=== PATIENT | male | born 1945 | race Caucasian/White ===

== ENCOUNTER 2016-11-20 12:04 | Inpatient (IN) | payer OTHER ==
[~2016-11-20] VITALS: Ht 180.3 cm; Wt 108.5 kg
[2016-11-20 12:30] LABS: HEMOGLOBIN 16.6 g/dL (13.7-18.0)
[2016-11-20] MEDS ORDERED: UBID100T5 PO (12:36)
[2016-11-20] MEDS ORDERED: ATOR40TA78 PO (12:36)
[2016-11-20] MEDS ORDERED: METO50TA82 PO (12:36)
[2016-11-20] MEDS ORDERED: CHOL20002 PO (12:36)
[2016-11-20] MEDS ORDERED: ENAL2.5T PO (12:36)
[2016-11-20] MEDS ORDERED: ASPI-621 PO (12:36)
[2016-11-20] MEDS ORDERED: LEVO125T PO (12:36)
[2016-11-20] MEDS ORDERED: testosterone INJ (12:36)
[2016-11-20] MEDS ORDERED: CALC250T PO (12:36)
[2016-11-20] MEDS ORDERED: MULT-464 PO (12:36)
[2016-11-20] MEDS ORDERED: METHYLCOBALAMIN SL (12:36)
[2016-11-20 12:37] VITALS: BP 114/73
[2016-11-20 12:42] LABS: ASPARTATE AMINO TRANSFERASE 142 U/L (15-37); BLOOD UREA NITROGEN 12 mg/dL (7-18)
[2016-11-20 12:54] LABS: ANISOCYTOSIS 1+
[2016-11-20 12:55] LABS: LARGE PLATELETS 1+
[2016-11-20] MEDS ORDERED: MIDAZOLAM 1 MG/ML, 5ML ONE (13:01)
[2016-11-20] MEDS ORDERED: FENTANYL PF 100 MCG/2ML ONE (13:02)
[2016-11-20] MEDS ORDERED: HEPARIN 1,000 UNITS/ML, 10ML ONE (13:02)
[2016-11-20] MEDS ORDERED: BIVALIRUDIN 250 MG ONE (13:02)
[2016-11-20] MEDS ORDERED: NITROGLYCERIN 5 MG/ML, 10ML ONE (13:02)
[2016-11-20] MEDS ORDERED: LIDOCAINE 2%, 20ML ONE (13:02)
[2016-11-20] MEDS ORDERED: TICAGRELOR 90 MG TABLET ONE (13:02)
[2016-11-20] MEDS ORDERED: SODIUM CHLORIDE 0.45% 1,000 ML IV SCH (13:12)
[2016-11-20] MEDS ORDERED: ACETAMINOPHEN 325 MG TABLET PO PRN (13:30)
[2016-11-20 14:20] VITALS: BP 101/64
[2016-11-20] MEDS ORDERED: PLEASE ENTER HEIGHT AND WEIGHT MC SCH (14:23)
[2016-11-20] MEDS ORDERED: ONDANSETRON 2MG/ML, 2ML IV ONE (15:30)
[2016-11-20] MEDS ORDERED: DIPHENHYDRAMINE 25 MG CAPSULE PO PRN (15:30)
[2016-11-20] MEDS ORDERED: NITROGLYCERIN 0.4 MG BOTTLE (25 TABS) SL PRN (15:30)
[2016-11-20] MEDS ORDERED: morphine SULFATE 10 MG/ML, 1ML IV PRN (15:30)
[2016-11-20] MEDS ORDERED: ZOLPIDEM 10MG TABLET PO PRN (15:30)
[2016-11-20] MEDS ORDERED: HEPARIN 5,000 UNITS/ML, 1ML IV PRN (16:30)
[2016-11-20] MEDS ORDERED: DO NOT GIVE MC ONE (16:30)
[2016-11-20] MEDS: HEPARIN 25,000 UNITS/500ML PMX 500 ML IV PRN (16:47)
[2016-11-20 17:10] LABS: IS PT STATUS REG ER OR PRE ER? NO
[2016-11-20] MEDS: METOPROLOL SUCCINATE 50 MG TAB.ER.24H PO SCH (17:51)
[2016-11-20 20:00] VITALS: BP 112/74
[2016-11-20] MEDS: SODIUM CHLORIDE 0.45% 1,000 ML IV SCH ×2 (20:16→23:45)
[2016-11-20] MEDS: ATORVASTATIN 40 MG TABLET PO SCH (21:40)
[2016-11-20] MEDS: ENALAPRIL 2.5MG TABLET PO SCH (21:40)
[2016-11-21] MEDS: SODIUM CHLORIDE 0.45% 1,000 ML IV SCH (01:16)
[2016-11-21 03:09] VITALS: BP 93/64
[2016-11-21] MEDS ORDERED: DILTIAZEM 5 MG/ML, 5ML ONE (04:38)
[2016-11-21 06:08] LABS: BLOOD UREA NITROGEN 12 mg/dL (7-18)
[2016-11-21 06:35] VITALS: BP 104/69
[2016-11-21 08:43] VITALS: BP 114/74
[2016-11-21] MEDS: ASPIRIN 325 MG TABLET EC PO SCH (08:47)
[2016-11-21] MEDS: ENALAPRIL 2.5MG TABLET PO SCH ×2 (08:47→21:51)
[2016-11-21] MEDS: LEVOTHYROXINE 125 MCG TABLET PO SCH (08:48)
[2016-11-21] MEDS ORDERED: ISOSORBIDE MONONITRATE ER 30 MG TABLET PO SCH (09:00)
[2016-11-21] MEDS ORDERED: OMNIPAQUE 350 MG/ML, 100ML BOTTLE ONE (10:09)
[2016-11-21] MEDS ORDERED: METOPROLOL TARTRATE 25 MG TABLET PO ONE (10:30)
[2016-11-21] MEDS ORDERED: CHLORHEXIDINE MOUTHWASH 15 ML UDC MM PRN (10:30)
[2016-11-21 10:57] LABS: ASPARTATE AMINO TRANSFERASE 62 U/L (15-37); BLOOD UREA NITROGEN 11 mg/dL (7-18)
[2016-11-21 11:07] LABS: HEMOGLOBIN 15.6 g/dL (13.7-18.0)
[2016-11-21] MEDS: HEPARIN 25,000 UNITS/500ML PMX 500 ML IV PRN (13:34)
[2016-11-21 13:38] VITALS: BP 107/64
[2016-11-21 15:11] VITALS: BP_SYST 102; BP_SYST 105; BP_DIAS 65
[2016-11-21 19:35] VITALS: BP 124/75
[2016-11-21] MEDS: SODIUM CHLORIDE FLUSH 10ML SYR IVF SCH (21:51)
[2016-11-21] MEDS: ATORVASTATIN 40 MG TABLET PO SCH (21:51)
[2016-11-21] MEDS: MUPIROCIN OINT 2%, 22GM TP SCH (22:54)
[2016-11-22] MEDS ORDERED: ALBUMIN HUMAN 5% 500 ML IV ONE (01:30)
[2016-11-22 04:11] VITALS: BP_SYST 103; BP_SYST 105; BP_DIAS 68; BP_DIAS 69
[2016-11-22] MEDS: MUPIROCIN OINT 2%, 22GM TP SCH ×2 (04:40→21:15)
[2016-11-22] MEDS: ASPIRIN 325 MG TABLET EC PO SCH (04:58)
[2016-11-22] MEDS: METOPROLOL SUCCINATE 50 MG TAB.ER.24H PO SCH (04:58)
[2016-11-22] MEDS: LEVOTHYROXINE 125 MCG TABLET PO SCH (04:59)
[2016-11-22] MEDS: INSULIN ASPART 100 UNITS/ML, PEN SQ-INSULIN SCH (05:14)
[2016-11-22 05:28] LABS: HEMOGLOBIN 15.9 g/dL (13.7-18.0)
[2016-11-22 05:42] LABS: BLOOD UREA NITROGEN 11 mg/dL (7-18)
[2016-11-22 05:45] LABS: ASPARTATE AMINO TRANSFERASE 46 U/L (15-37)
[2016-11-22] MEDS ORDERED: MIDAZOLAM 10MG/2 ML ONE (07:28)
[2016-11-22] MEDS ORDERED: FENTANYL PF 1000 MCG/20ML ONE (07:28)
[2016-11-22] MEDS ORDERED: REGULAR INSULIN 62.5 UNITS in SODIUM CHLORIDE 0.9% 249.375 ML IV PRN (07:30)
[2016-11-22] MEDS ORDERED: CEFUROXIME 1.5 GM in SODIUM CHLORIDE 0.9% 50 ML IVPB PRN (07:30)
[2016-11-22] MEDS ORDERED: VANCOMYCIN 1,500 MG in SODIUM CHLORIDE 0.9% 250 ML IVPB PRN (07:30)
[2016-11-22] MEDS ORDERED: MANNITOL PMX 20% 500 ML IVPB PRN (07:30)
[2016-11-22] MEDS ORDERED: EPINEPHRINE 2 MG in SODIUM CHLORIDE 0.9% 248 ML IV SCH (07:30)
[2016-11-22] MEDS ORDERED: DEXMEDETOMIDINE 200 MCG in SODIUM CHLORIDE 0.9% 48 ML IV SCH (07:30)
[2016-11-22] MEDS ORDERED: PHENYLEPHRINE 10 MG in SODIUM CHLORIDE 0.9% 249 ML IV PRN ×2 (07:30→16:37)
[2016-11-22] MEDS ORDERED: POTASSIUM CHLORIDE 80 MEQ, SODIUM BICARBONATE 8.4% 10 MEQ, MAGNESIUM SULFATE 0.5 GM, LI... IV PRN (07:30)
[2016-11-22] MEDS ORDERED: ROCURONIUM 10 MG/ML ONE (08:12)
[2016-11-22] MEDS ORDERED: PROPOFOL 10 MG/ML, 20ML ONE (08:12)
[2016-11-22] MEDS: SODIUM CHLORIDE FLUSH 10ML SYR IVF SCH ×3 (09:00→20:39)
[2016-11-22] MEDS ORDERED: HEPARIN 1,000 UNITS/ML, 10ML IV ONE (09:37)
[2016-11-22] MEDS ORDERED: FENTANYL PF 250 MCG/5ML ONE ×2 (10:56→15:07)
[2016-11-22] MEDS ORDERED: AMINOCAPROIC ACID 250 MG/ML, 20ML ONE ×2 (12:25→17:31)
[2016-11-22] MEDS ORDERED: DESMOPRESSIN 28 MCG in SODIUM CHLORIDE 0.9% 50 ML IVPB ONE (15:00)
[2016-11-22] MEDS ORDERED: DEXMEDETOMIDINE 200 MCG in SODIUM CHLORIDE 0.9% 48 ML IV ONE (16:00)
[2016-11-22] MEDS ORDERED: SODIUM CHLORIDE 0.9% 1,000 ML IV PRN (16:37)
[2016-11-22] MEDS ORDERED: DOBUTAMINE 250 MG in SODIUM CHLORIDE 0.9% 230 ML IV PRN (16:37)
[2016-11-22] MEDS ORDERED: NITROGLYCERIN/D5W PMX 250 ML IV PRN (16:37)
[2016-11-22] MEDS ORDERED: SODIUM CHLORIDE 0.9% 1,000 ML IV ONE (16:37)
[2016-11-22] MEDS ORDERED: CLEVIDIPINE 50 ML IV PRN (16:37)
[2016-11-22] MEDS ORDERED: ONDANSETRON 2MG/ML, 2ML IVPush PRN (17:00)
[2016-11-22] MEDS ORDERED: DEXTROSE 50%, 50ML SYRINGE IVPush PRN (17:00)
[2016-11-22] MEDS ORDERED: ACETAMINOPHEN 325 MG TABLET PO PRN (17:00)
[2016-11-22] MEDS ORDERED: PROCHLORPERAZINE 5 MG/ML, 2ML IVPush PRN (17:00)
[2016-11-22] MEDS ORDERED: BISACODYL 5 MG EC TABLET PO PRN (17:00)
[2016-11-22] MEDS ORDERED: GLUCAGON 1 MG IM PRN (17:00)
[2016-11-22] MEDS ORDERED: BISACODYL 10 MG SUPP PR PRN (17:00)
[2016-11-22] MEDS ORDERED: DEXTROSE 4 GM TAB.CHEW PO PRN (17:00)
[2016-11-22] MEDS ORDERED: ACETAMINOPHEN 650 MG SUPP PR PRN (17:00)
[2016-11-22] MEDS ORDERED: LACTATED RINGERS 500 ML IVBOLUS PRN (17:00)
[2016-11-22] MEDS ORDERED: HYDROcodone/APAP 10/325 MG TABLET PO PRN (17:00)
[2016-11-22] MEDS ORDERED: FENTANYL PF 100 MCG/2ML ONE (17:11)
[2016-11-22] MEDS ORDERED: PAPAVERINE 30 MG/ML, 2ML ONE (17:31)
[2016-11-22] MEDS ORDERED: CALCIUM CHLORIDE 10%, 10ML SYR ONE (17:31)
[2016-11-22] MEDS ORDERED: PROTAMINE SULFATE 10 MG/ML, 25ML ONE (17:31)
[2016-11-22] MEDS ORDERED: MILRINONE 1 MG/ML, 10ML IV ONE (17:31)
[2016-11-22] MEDS ORDERED: HEPARIN 1,000 UNITS/ML, 10ML ONE (17:32)
[2016-11-22] MEDS ORDERED: SODIUM BICARB 8.4%, 50ML SYRINGE ONE (17:34)
[2016-11-22] MEDS ORDERED: HEPARIN 1,000 UNITS/ML, 30ML ONE (17:34)
[2016-11-22] MEDS ORDERED: ALBUMIN HUMAN 25% 50 ML ONE (17:34)
[2016-11-22] MEDS ORDERED: LIDOCAINE 2% 100MG/5ML SYRINGE ONE (17:35)
[2016-11-22] MEDS ORDERED: SODIUM BICARBONATE 1 MEQ/ML, 50ML VIAL ONE (17:35)
[2016-11-22] MEDS ORDERED: MANNITOL 0.25 GM/ML, 50ML ONE (17:35)
[2016-11-22] MEDS: KSCALE TO 4.5 IV SCH ×2 (18:00→23:00)
[2016-11-22 18:02] LABS: ABG COLLECTION SITE ARTERIAL LINE
[2016-11-22 18:16] LABS: HEMOGLOBIN 12.2 g/dL (13.7-18.0)
[2016-11-22] MEDS: MAGNESIUM SULFATE 1 GM in SODIUM CHLORIDE 0.9% 50 ML IVPB SCH (19:19)
[2016-11-22 19:26] LABS: ABG COLLECTION SITE ARTERIAL LINE
[2016-11-22] MEDS ORDERED: POTASSIUM CHLORIDE PMX 100 ML IV ONE (19:30)
[2016-11-22] MEDS: DEXMEDETOMIDINE 200 MCG in SODIUM CHLORIDE 0.9% 48 ML IV PRN ×2 (19:39→22:17)
[2016-11-22] MEDS: SODIUM BICARB 8.4%, 50ML SYRINGE IV PRN (19:50)
[2016-11-22] MEDS: morphine SULFATE 10 MG/ML, 1ML IVPush PRN ×2 (20:23→22:29)
[2016-11-22] MEDS: MIDAZOLAM 1 MG/ML, 5ML IVPush PRN ×2 (20:38→22:29)
[2016-11-22] MEDS: CEFUROXIME 1.5 GM in SODIUM CHLORIDE 0.9% 50 ML IVPB SCH (20:39)
[2016-11-22] MEDS: ATORVASTATIN 40 MG TABLET PO SCH (21:00)
[2016-11-22] MEDS: DOCUSATE 100 MG CAPSULE PO SCH (21:00)
[2016-11-22] MEDS: MUPIROCIN OINT 2%, 22GM NAS SCH (21:00)
[2016-11-22] MEDS: EPINEPHRINE 2 MG in SODIUM CHLORIDE 0.9% 248 ML IV PRN (21:13)
[2016-11-22] MEDS: REGULAR INSULIN 62.5 UNITS in SODIUM CHLORIDE 0.9% 249.375 ML IV PRN (21:14)
[2016-11-22 21:24] LABS: ABG COLLECTION SITE NOT DOCUMENTED
[2016-11-22] MEDS: VANCOMYCIN 1,500 MG in SODIUM CHLORIDE 0.9% 250 ML IVPB SCH (21:48)
[2016-11-22 22:55] LABS: HEMOGLOBIN 12.3 g/dL (13.7-18.0)
[2016-11-22 23:35] LABS: ABG COLLECTION SITE ARTERIAL LINE; FIO2 40 %
[2016-11-23] MEDS: SODIUM BICARB 8.4%, 50ML SYRINGE IV PRN ×2 (00:20→02:26)
[2016-11-23] MEDS: DEXMEDETOMIDINE 200 MCG in SODIUM CHLORIDE 0.9% 48 ML IV PRN ×4 (01:16→07:43)
[2016-11-23 02:00] LABS: ABG COLLECTION SITE NOT DOCUMENTED
[2016-11-23] MEDS: EPINEPHRINE 2 MG in SODIUM CHLORIDE 0.9% 248 ML IV PRN ×2 (02:31→06:45)
[2016-11-23] MEDS: morphine SULFATE 10 MG/ML, 1ML IVPush PRN (02:57)
[2016-11-23] MEDS: MIDAZOLAM 1 MG/ML, 5ML IVPush PRN (02:57)
[2016-11-23 04:07] VITALS: BP 100/70
[2016-11-23] MEDS: KSCALE TO 4.5 IV SCH ×3 (05:00→19:54)
[2016-11-23 05:25] LABS: ABG COLLECTION SITE NOT DOCUMENTED
[2016-11-23 05:32] LABS: BLOOD UREA NITROGEN 12 mg/dL (7-18)
[2016-11-23] MEDS: CEFUROXIME 1.5 GM in SODIUM CHLORIDE 0.9% 50 ML IVPB SCH (07:32)
[2016-11-23] MEDS: OXYcodone IR 5MG TABLET PO PRN ×4 (07:32→21:45)
[2016-11-23] MEDS: PANTOPRAZOLE 40 MG IV IVPush SCH (07:32)
[2016-11-23] MEDS: SODIUM CHLORIDE FLUSH 10ML SYR IVF SCH ×4 (07:32→19:54)
[2016-11-23] MEDS: DOCUSATE 100 MG CAPSULE PO SCH ×2 (07:33→19:55)
[2016-11-23] MEDS: ASPIRIN 81 MG TABLET EC PO SCH (07:33)
[2016-11-23] MEDS: MUPIROCIN OINT 2%, 22GM TP SCH ×2 (07:33→19:55)
[2016-11-23] MEDS: METOPROLOL TARTRATE 25 MG TABLET PO/NG SCH ×2 (07:33→19:56)
[2016-11-23] MEDS: CLOPIDOGREL 75 MG TABLET PO SCH (07:33)
[2016-11-23] MEDS: MUPIROCIN OINT 2%, 22GM NAS SCH ×2 (07:34→19:55)
[2016-11-23] MEDS: VANCOMYCIN 1,500 MG in SODIUM CHLORIDE 0.9% 250 ML IVPB SCH (09:05)
[2016-11-23] MEDS: EPINEPHRINE 4 MG in SODIUM CHLORIDE 0.9% 246 ML IV PRN ×2 (11:45→23:17)
[2016-11-23 12:14] LABS: HEMOGLOBIN 11.3 g/dL (13.7-18.0)
[2016-11-23] MEDS: MEPERIDINE/PF 25MG/0.5ML IVPush PRN ×2 (12:47→21:45)
[2016-11-23] MEDS ORDERED: POTASSIUM CHLORIDE PMX 100 ML IV ONE (13:30)
[2016-11-23] MEDS ORDERED: POTASSIUM CHLORIDE PMX 100 ML IVPB ONE (14:00)
[2016-11-23] MEDS: REGULAR INSULIN 62.5 UNITS in SODIUM CHLORIDE 0.9% 249.375 ML IV PRN (16:01)
[2016-11-23] MEDS: MAGNESIUM SULFATE 1 GM in SODIUM CHLORIDE 0.9% 50 ML IVPB SCH (19:13)
[2016-11-23] MEDS: CHLORHEXIDINE MOUTHWASH 15 ML UDC MM SCH (19:13)
[2016-11-23] MEDS: INSULIN ASPART 100 UNITS/ML, PEN SQ-INSULIN SCH (19:53)
[2016-11-23] MEDS: ATORVASTATIN 40 MG TABLET PO SCH (19:55)
[2016-11-23 19:57] LABS: HEMOGLOBIN 10.6 g/dL (13.7-18.0)
[2016-11-24] MEDS: KSCALE TO 4.5 IV SCH (02:00)
[2016-11-24] MEDS: OXYcodone IR 5MG TABLET PO PRN ×5 (03:04→19:44)
[2016-11-24] MEDS: MEPERIDINE/PF 25MG/0.5ML IVPush PRN (03:04)
[2016-11-24 03:34] LABS: HEMOGLOBIN 10.4 g/dL (13.7-18.0)
[2016-11-24 03:44] LABS: BLOOD UREA NITROGEN 15 mg/dL (7-18)
[2016-11-24 04:42] LABS: ABG COLLECTION SITE ARTERIAL LINE; O2 FLOW 4 L/min
[2016-11-24] MEDS: CHLORHEXIDINE MOUTHWASH 15 ML UDC MM SCH ×2 (05:00→19:18)
[2016-11-24] MEDS: INSULIN ASPART 100 UNITS/ML, PEN SQ-INSULIN SCH (05:23)
[2016-11-24] MEDS: SODIUM CHLORIDE FLUSH 10ML SYR IVF SCH ×3 (08:22→19:18)
[2016-11-24] MEDS: PANTOPRAZOLE 40 MG IV IVPush SCH (08:22)
[2016-11-24] MEDS: MUPIROCIN OINT 2%, 22GM TP SCH (08:23)
[2016-11-24] MEDS: METOPROLOL TARTRATE 25 MG TABLET PO/NG SCH ×2 (08:24→19:19)
[2016-11-24] MEDS: ASPIRIN 81 MG TABLET EC PO SCH (08:25)
[2016-11-24] MEDS: DOCUSATE 100 MG CAPSULE PO SCH ×2 (08:25→19:18)
[2016-11-24] MEDS: CLOPIDOGREL 75 MG TABLET PO SCH (08:25)
[2016-11-24] MEDS: MUPIROCIN OINT 2%, 22GM NAS SCH ×2 (08:26→19:18)
[2016-11-24] MEDS ORDERED: FUROSEMIDE 20 MG/2 ML IV ONE (12:00)
[2016-11-24] MEDS: FUROSEMIDE 20 MG/2 ML IV SCH (16:25)
[2016-11-24] MEDS: POTASSIUM CHLORIDE 10 MEQ TABLET.ER PO SCH (16:25)
[2016-11-24] MEDS: MAGNESIUM SULFATE 1 GM in SODIUM CHLORIDE 0.9% 50 ML IVPB SCH (16:29)
[2016-11-24] MEDS ORDERED: AMIODARONE 150 MG in DEXTROSE 5% 100 ML IV ONE (19:00)
[2016-11-24] MEDS: APIXABAN 5 MG TABLET PO SCH (19:18)
[2016-11-24] MEDS: ATORVASTATIN 40 MG TABLET PO SCH (19:19)
[2016-11-24] MEDS: AMIODARONE 900 MG in DEXTROSE 5% 482 ML IV PRN (19:24)
[2016-11-25] MEDS: OXYcodone IR 5MG TABLET PO PRN ×6 (02:57→23:47)
[2016-11-25 04:33] LABS: HEMOGLOBIN 10.4 g/dL (13.7-18.0)
[2016-11-25 04:40] LABS: BLOOD UREA NITROGEN 25 mg/dL (7-18)
[2016-11-25] MEDS: POTASSIUM CHLORIDE 10 MEQ TABLET.ER PO SCH ×2 (08:15→16:48)
[2016-11-25] MEDS: FUROSEMIDE 20 MG/2 ML IV SCH (08:15)
[2016-11-25] MEDS: INSULIN ASPART 100 UNITS/ML, PEN SQ-INSULIN PRN ×3 (08:16→18:10)
[2016-11-25] MEDS ORDERED: AMIODARONE 150 MG in DEXTROSE 5% 100 ML IV ONE (09:00)
[2016-11-25] MEDS ORDERED: FUROSEMIDE 40 MG/4 ML IV ONE (09:00)
[2016-11-25] MEDS ORDERED: DIGOXIN 0.25 MG/ML, 2ML IVPush ONE (09:00)
[2016-11-25] MEDS: SODIUM CHLORIDE FLUSH 10ML SYR IVF SCH ×2 (09:01→20:15)
[2016-11-25] MEDS: CHLORHEXIDINE MOUTHWASH 15 ML UDC MM SCH (09:04)
[2016-11-25] MEDS: PANTOPRAZOLE 40 MG IV IVPush SCH (09:04)
[2016-11-25] MEDS: MUPIROCIN OINT 2%, 22GM NAS SCH ×2 (09:04→20:13)
[2016-11-25] MEDS: METOPROLOL TARTRATE 25 MG TABLET PO/NG SCH ×2 (09:05→20:14)
[2016-11-25] MEDS: DOCUSATE 100 MG CAPSULE PO SCH ×2 (09:05→20:13)
[2016-11-25] MEDS: APIXABAN 5 MG TABLET PO SCH ×2 (09:05→20:13)
[2016-11-25] MEDS: ASPIRIN 81 MG TABLET EC PO SCH (09:05)
[2016-11-25] MEDS: FUROSEMIDE 40 MG/4 ML IV SCH ×2 (09:20→20:12)
[2016-11-25] MEDS ORDERED: LIDOCAINE 1%, 20ML ONE (11:54)
[2016-11-25] MEDS ORDERED: SODIUM BICARBONATE 4.2%, 5ML ONE (11:55)
[2016-11-25] MEDS: AMIODARONE 900 MG in DEXTROSE 5% 482 ML IV PRN (16:02)
[2016-11-25] MEDS: ATORVASTATIN 40 MG TABLET PO SCH (20:14)
[2016-11-26 04:44] LABS: BLOOD UREA NITROGEN 29 mg/dL (7-18)
[2016-11-26] MEDS: OXYcodone IR 5MG TABLET PO PRN ×4 (06:10→18:02)
[2016-11-26 06:20] LABS: BLOOD UREA NITROGEN 29 mg/dL (7-18)
[2016-11-26 06:23] LABS: HEMOGLOBIN 10.1 g/dL (13.7-18.0)
[2016-11-26] MEDS: PANTOPRAZOLE 40 MG IV IVPush SCH (09:24)
[2016-11-26] MEDS: POTASSIUM CHLORIDE 10 MEQ TABLET.ER PO SCH ×2 (09:24→18:02)
[2016-11-26] MEDS: METOPROLOL TARTRATE 25 MG TABLET PO/NG SCH ×2 (09:24→21:49)
[2016-11-26] MEDS: SODIUM CHLORIDE FLUSH 10ML SYR IVF SCH ×3 (09:24→21:58)
[2016-11-26] MEDS: APIXABAN 5 MG TABLET PO SCH ×2 (09:24→21:48)
[2016-11-26] MEDS: DOCUSATE 100 MG CAPSULE PO SCH ×2 (09:24→21:57)
[2016-11-26] MEDS: ASPIRIN 81 MG TABLET EC PO SCH (09:24)
[2016-11-26] MEDS: FUROSEMIDE 40 MG/4 ML IV SCH ×2 (09:25→22:16)
[2016-11-26] MEDS: MUPIROCIN OINT 2%, 22GM NAS SCH ×2 (09:25→21:48)
[2016-11-26] MEDS ORDERED: MAGNESIUM HYDROXIDE 8%, 30ML UDC PO PRN (09:30)
[2016-11-26] MEDS ORDERED: AMIODARONE 150 MG in DEXTROSE 5% 100 ML IV ONE (10:00)
[2016-11-26] MEDS: LISINOPRIL 5 MG TABLET PO SCH (10:17)
[2016-11-26] MEDS: LEVOTHYROXINE 125 MCG TABLET PO SCH (10:17)
[2016-11-26] MEDS: FILTER 0.22 MICRON IV PRN ×2 (10:17→23:39)
[2016-11-26 13:45] VITALS: BP 92/64
[2016-11-26 20:47] VITALS: BP 94/60
[2016-11-26 21:20] VITALS: BP 99/65
[2016-11-26] MEDS: ATORVASTATIN 40 MG TABLET PO SCH (21:48)
[2016-11-26] MEDS: MAGNESIUM HYDROXIDE 8%, 30ML UDC PO PRN (21:50)
[2016-11-26 22:36] VITALS: BP_SYST 90; BP_SYST 95; BP_DIAS 57; BP_DIAS 61
[2016-11-26] MEDS: AMIODARONE 900 MG in DEXTROSE 5% 482 ML IV PRN (23:40)
[2016-11-26 23:42] VITALS: BP 96/62
[2016-11-27 00:39] VITALS: BP 100/74
[2016-11-27 05:21] LABS: BLOOD UREA NITROGEN 26 mg/dL (7-18)
[2016-11-27] MEDS: LEVOTHYROXINE 125 MCG TABLET PO SCH (05:39)
[2016-11-27 08:04] VITALS: BP 92/64
[2016-11-27] MEDS: APIXABAN 5 MG TABLET PO SCH ×2 (08:07→21:18)
[2016-11-27] MEDS: FUROSEMIDE 40 MG/4 ML IV SCH ×2 (08:07→21:19)
[2016-11-27] MEDS: METOPROLOL TARTRATE 25 MG TABLET PO/NG SCH ×2 (08:07→21:18)
[2016-11-27] MEDS: ASPIRIN 81 MG TABLET EC PO SCH (08:07)
[2016-11-27] MEDS: MUPIROCIN OINT 2%, 22GM NAS SCH (08:07)
[2016-11-27] MEDS: DOCUSATE 100 MG CAPSULE PO SCH ×2 (08:07→21:17)
[2016-11-27] MEDS: POTASSIUM CHLORIDE 10 MEQ TABLET.ER PO SCH ×2 (08:07→17:28)
[2016-11-27] MEDS: PANTOPRAZOLE 40 MG IV IVPush SCH (08:07)
[2016-11-27] MEDS: SODIUM CHLORIDE FLUSH 10ML SYR IVF SCH ×4 (08:08→21:19)
[2016-11-27] MEDS: LISINOPRIL 5 MG TABLET PO SCH (08:08)
[2016-11-27] MEDS ORDERED: MAGNESIUM HYDROXIDE 8%, 30ML UDC PO SCH (09:00)
[2016-11-27 13:17] VITALS: BP 89/62
[2016-11-27] MEDS ORDERED: PROPOFOL 10 MG/ML, 20ML ONE (13:47)
[2016-11-27] MEDS: OXYcodone IR 5MG TABLET PO PRN ×2 (17:28→23:58)
[2016-11-27 21:06] VITALS: BP 106/69
[2016-11-27] MEDS: MAGNESIUM HYDROXIDE 8%, 30ML UDC PO PRN (21:17)
[2016-11-27] MEDS: ATORVASTATIN 40 MG TABLET PO SCH (21:18)
[2016-11-28 01:59] VITALS: BP 97/62
[2016-11-28 03:49] LABS: BLOOD UREA NITROGEN 20 mg/dL (7-18)
[2016-11-28] MEDS: LEVOTHYROXINE 125 MCG TABLET PO SCH (05:18)
[2016-11-28 06:30] VITALS: BP 95/62
[2016-11-28] MEDS: AMIODARONE 900 MG in DEXTROSE 5% 482 ML IV PRN (07:16)
[2016-11-28] MEDS: PANTOPRAZOLE 40 MG IV IVPush SCH (08:53)
[2016-11-28] MEDS: FUROSEMIDE 40 MG/4 ML IV SCH ×2 (08:54→20:16)
[2016-11-28] MEDS: ASPIRIN 81 MG TABLET EC PO SCH (08:54)
[2016-11-28] MEDS: METOPROLOL SUCCINATE 25 MG TAB.ER.24H PO SCH (08:54)
[2016-11-28] MEDS: APIXABAN 5 MG TABLET PO SCH ×2 (08:54→20:18)
[2016-11-28] MEDS: DOCUSATE 100 MG CAPSULE PO SCH ×2 (08:54→20:17)
[2016-11-28] MEDS: AMIODARONE 200 MG TABLET PO SCH ×2 (08:54→20:17)
[2016-11-28] MEDS: SODIUM CHLORIDE FLUSH 10ML SYR IVF SCH ×4 (08:54→20:17)
[2016-11-28] MEDS: POTASSIUM CHLORIDE 10 MEQ TABLET.ER PO SCH ×2 (08:54→17:17)
[2016-11-28] MEDS: MAGNESIUM HYDROXIDE 8%, 30ML UDC PO SCH (08:55)
[2016-11-28] MEDS: LISINOPRIL 5 MG TABLET PO SCH (08:55)
[2016-11-28 12:13] VITALS: BP 95/61
[2016-11-28 20:15] VITALS: BP 108/70
[2016-11-28] MEDS: OXYcodone IR 5MG TABLET PO PRN (20:15)
[2016-11-28] MEDS: ATORVASTATIN 40 MG TABLET PO SCH (20:22)
[2016-11-29 00:22] VITALS: BP 109/69
[2016-11-29] MEDS: METOPROLOL SUCCINATE 25 MG TAB.ER.24H PO SCH (05:49)
[2016-11-29] MEDS: LEVOTHYROXINE 125 MCG TABLET PO SCH (05:49)
[2016-11-29] MEDS ORDERED: POTA10TA5 PO (06:39)
[2016-11-29] MEDS ORDERED: APIX5TAB PO (06:39)
[2016-11-29] MEDS ORDERED: AMIO200T42 PO (06:39)
[2016-11-29] MEDS ORDERED: ASPI-621 PO (06:39)
[2016-11-29] MEDS ORDERED: METO25TA91 PO (06:39)
[2016-11-29] MEDS ORDERED: FURO40TA6 PO (06:39)
[2016-11-29] MEDS ORDERED: DOCU-30 PO (06:40)
[2016-11-29 07:17] LABS: BLOOD UREA NITROGEN 17 mg/dL (7-18)
[2016-11-29 07:19] VITALS: BP 115/76
[2016-11-29] MEDS ORDERED: FUROSEMIDE 40 MG/4 ML IV ONE (08:00)
[2016-11-29] MEDS ORDERED: POTASSIUM CHLORIDE 20 MEQ TAB.ER.PRT PO ONE (08:00)
[2016-11-29] MEDS: SODIUM CHLORIDE FLUSH 10ML SYR IVF SCH ×2 (08:04)
[2016-11-29] MEDS: MAGNESIUM HYDROXIDE 8%, 30ML UDC PO SCH (08:05)
[2016-11-29] MEDS: PANTOPRAZOLE 40 MG IV IVPush SCH (08:05)
[2016-11-29] MEDS: APIXABAN 5 MG TABLET PO SCH (08:19)
[2016-11-29] MEDS: AMIODARONE 200 MG TABLET PO SCH (08:19)
[2016-11-29] MEDS: DOCUSATE 100 MG CAPSULE PO SCH (08:20)
[2016-11-29] MEDS: ASPIRIN 81 MG TABLET EC PO SCH (08:21)
[2016-11-29] MEDS: LISINOPRIL 5 MG TABLET PO SCH (08:21)
[2016-11-29] MEDS ORDERED: OXYC5TAB3 PO (15:25)
== END 2016-11-29 17:10 | disposition home health service (06) | DRG 233 ==
LOC: 5SO 12:04 → INTOOBSV 12:04 → OBSVTOIN 11-21 10:19 → CCU 11-22 08:15 → CSU 11-22 08:56 → CCU 11-25 04:56 → 5SO 11-26 12:37 → DCLOUNGE 11-29 14:12
PROVIDERS: ADMIT Internal Medicine Cardiovascular Disease; ATTEND Internal Medicine Cardiovascular Disease
PROC: 4A023N7 Measurement of Cardiac Sampling and Pressure, Left Heart, Percutaneous Approach (ICD-10-PCS; 2016-11-20)
PROC: B2151ZZ Fluoroscopy of Left Heart using Low Osmolar Contrast (ICD-10-PCS; 2016-11-20)
PROC: B2131ZZ Fluoroscopy of Multiple Coronary Artery Bypass Grafts using Low Osmolar Contrast (ICD-10-PCS; 2016-11-20)
PROC: B2111ZZ Fluoroscopy of Multiple Coronary Arteries using Low Osmolar Contrast (ICD-10-PCS; 2016-11-20)
PROC: 0T9B70Z Drainage of Bladder with Drainage Device, Via Natural or Artificial Opening (ICD-10-PCS; 2016-11-21)
PROC: 02100A8 Bypass Coronary Artery, One Artery from Right Internal Mammary with Autologous Arterial Tissue, Open Approach (ICD-10-PCS; 2016-11-22)
PROC: B2111ZZ Fluoroscopy of Multiple Coronary Arteries using Low Osmolar Contrast (ICD-10-PCS; 2016-11-22)
PROC: B2151ZZ Fluoroscopy of Left Heart using Low Osmolar Contrast (ICD-10-PCS; 2016-11-22)
PROC: 021109W Bypass Coronary Artery, Two Arteries from Aorta with Autologous Venous Tissue, Open Approach (ICD-10-PCS; 2016-11-22)
PROC: 06BP4ZZ Excision of Right Saphenous Vein, Percutaneous Endoscopic Approach (ICD-10-PCS; 2016-11-22)
PROC: 6A550Z2 Pheresis of Platelets, Single (ICD-10-PCS; 2016-11-22)
PROC: 5A1221Z Performance of Cardiac Output, Continuous (ICD-10-PCS; 2016-11-22)
PROC: B2131ZZ Fluoroscopy of Multiple Coronary Artery Bypass Grafts using Low Osmolar Contrast (ICD-10-PCS; 2016-11-22)
PROC: 4A023N7 Measurement of Cardiac Sampling and Pressure, Left Heart, Percutaneous Approach (ICD-10-PCS; principal; 2016-11-22 08:00)
PROC: 0W9930Z Drainage of Right Pleural Cavity with Drainage Device, Percutaneous Approach (ICD-10-PCS; 2016-11-25)
PROC: 5A2204Z Restoration of Cardiac Rhythm, Single (ICD-10-PCS; 2016-11-27)
DX: I21.4 Non-ST elevation (NSTEMI) myocardial infarction (principal); J96.90 Respiratory failure, unspecified, unspecified whether with hypoxia or hypercapnia; R57.0 Cardiogenic shock; I48.92 Unspecified atrial flutter; D68.69 Other thrombophilia; I42.9 Cardiomyopathy, unspecified; Z99.11 Dependence on respirator [ventilator] status; I25.119 Atherosclerotic heart disease of native coronary artery with unspecified angina pectoris; E78.5 Hyperlipidemia, unspecified; D64.9 Anemia, unspecified; D75.89 Other specified diseases of blood and blood-forming organs; E03.9 Hypothyroidism, unspecified; E78.00 Pure hypercholesterolemia, unspecified; F41.9 Anxiety disorder, unspecified; I10 Essential (primary) hypertension; I48.91 Unspecified atrial fibrillation; K59.00 Constipation, unspecified; N28.9 Disorder of kidney and ureter, unspecified; Z51.5 Encounter for palliative care; Z79.01 Long term (current) use of anticoagulants; Z79.899 Other long term (current) drug therapy; Z87.891 Personal history of nicotine dependence
CPT/HCPCS: 32555; 36415; 36600; 71010; 71020; 71260; 80048; 80053; 80061; 81003; 82040; 82330; 82800; 82803; 82810; 82947; 82962; 83036; 83735; 84132; 84295; 84443; 84481; 84484; 85014; 85018; 85025; 85027; 85049; 85347; 85520; 85610; 85730; 86850; 86900; 86923; 87081; 88300; 92960; 93005; 93306; 93312; 93321; 93325; 93459; 93880; 93971; 94002; 94003; C1725; C1760; C1769; C1894; G0378; J0583; J0697; J1644; J1815; J1940; J2175; J2250; J2260; J2405; J2597; J2704; J2720; J3010; J3370; J3475; J3480; J3490; P9045; P9047; Q9967; C1751; C9113; J0171; J0282; J1160; J2150; J2270; J2370; J2440; J7030; J7050; J7060; P9035

== ENCOUNTER 2016-12-19 17:42 | Emergency (ER) | payer OTHER ==
[~2016-12-19] VITALS: Ht 180.3 cm; Wt 97.1 kg
[~2016-12-19 17:42] MED LIST: AMIO200T42 PO; APIX5TAB PO; ASPI-621 PO; ATOR40TA78 PO; CALC250T PO; CHOL20002 PO; DOCU-30 PO; ENAL2.5T PO; FURO40TA6 PO; LEVO125T PO; METHYLCOBALAMIN SL; METO25TA91 PO; METO50TA82 PO; MULT-464 PO; OXYC5TAB3 PO; POTA10TA5 PO; UBID100T5 PO; testosterone INJ
[2016-12-19 18:25] LABS: HEMOGLOBIN 13.4 g/dL (13.7-18.0)
[2016-12-19 18:37] LABS: BLOOD UREA NITROGEN 15 mg/dL (7-18)
[2016-12-19 20:31] VITALS: BP 93/54
== END 2016-12-19 20:33 | disposition home or self-care (01) ==
LOC: ED 20:22
DX: I50.1 Left ventricular failure, unspecified (principal); J90 Pleural effusion, not elsewhere classified; N18.9 Chronic kidney disease, unspecified; Z95.1 Presence of aortocoronary bypass graft; Z87.891 Personal history of nicotine dependence
CPT/HCPCS: 36415; 71010; 80048; 82040; 85025; 93005

== ENCOUNTER 2020-02-26 14:43 | Outpatient (CLI) | payer MEDICARE ==
[~2020-02-26 14:43] MED LIST changes: -ASPI-621 PO; +ASPI81TA45 PO; +DOCU-131 PO; -DOCU-30 PO
== END 2020-02-26 23:59 | disposition home or self-care (01) ==
LOC: CFH 14:43
PROVIDERS: ATTEND Internal Medicine Cardiovascular Disease
DX: I08.8 Other rheumatic multiple valve diseases (principal); I25.10 Atherosclerotic heart disease of native coronary artery without angina pectoris
CPT/HCPCS: 93306

== ENCOUNTER 2020-04-19 09:48 | Day surgery (SDC) | payer MEDICARE ==
[~2020-04-19] VITALS: Ht 180.3 cm; Wt 102.3 kg
[2020-04-19 10:28] VITALS: BP 115/66
[2020-04-19] MEDS ORDERED: METO25TA91 PO (10:40)
[2020-04-19] MEDS ORDERED: EZET10TA70 PO (10:41)
[2020-04-19] MEDS ORDERED: RIVA2.5T PO (10:46)
[2020-04-19 11:03] LABS: BASOPHILS # (AUTO) 0.03 x10^3/uL (0-0.1); BASOPHILS % (AUTO) 0 % (0-1); EOSINOPHILS # (AUTO) 0.19 x10^3/uL (0-0.4); EOSINOPHILS % (AUTO) 2 % (1-7); LYMPHOCYTES % (AUTO) 25 % (22-44); MD NO; MEAN CORPUSCULAR HEMOGLOBIN 33.6 pg (27.5-34.5); MEAN CORPUSCULAR HGB CONC 32.8 g/dL (33.2-36.2); MEAN CORPUSCULAR VOLUME 102.4 fL (81-97); MEAN PLATELET VOLUME 9.4 fL (7.4-10.4); MONOCYTES # (AUTO) 0.67 x10^3/uL (0.2-0.8); MONOCYTES % (AUTO) 8 % (2-9); NEUTROPHILS # (AUTO) 5.25 x10^3/uL (1.8-6.8); NEUTROPHILS % (AUTO) 65 % (42-75); PLATELET COUNT 205 x10^3/uL (130-400); RED BLOOD COUNT 4.17 x10^6/uL (4.38-5.82); RED CELL DISTRIBUTION WIDTH 14.3 % (9.4-14.8)
[2020-04-19 11:12] LABS: ANION GAP 7 mmol/L (5-15); CALCIUM 9.1 mg/dL (8.5-10.1); CHLORIDE 110 mmol/L (98-107)
[2020-04-19] MEDS ORDERED: FENTANYL PF 100 MCG/2ML ONE (11:14)
[2020-04-19] MEDS ORDERED: MIDAZOLAM 1 MG/ML, 5ML ONE (11:14)
[2020-04-19] MEDS ORDERED: VERAPAMIL 2.5 MG/ML, 2ML ONE (11:14)
[2020-04-19] MEDS ORDERED: LIDOCAINE-MPF 1%, 5ML ONE (11:15)
[2020-04-19] MEDS ORDERED: HEPARIN 1,000 UNITS/ML, 10ML ONE (11:15)
[2020-04-19] MEDS ORDERED: SODIUM CHLORIDE 0.9% 1,000 ML IV SCH (11:51)
== END 2020-04-19 14:01 | disposition home or self-care (01) ==
LOC: CACL 09:48
PROVIDERS: ATTEND Internal Medicine Cardiovascular Disease
DX: I35.0 Nonrheumatic aortic (valve) stenosis (principal); Z11.59 Encounter for screening for other viral diseases; I25.810 Atherosclerosis of coronary artery bypass graft(s) without angina pectoris; E78.5 Hyperlipidemia, unspecified; I12.9 Hypertensive chronic kidney disease with stage 1 through stage 4 chronic kidney disease, or unspecified chronic kidney disease; N18.9 Chronic kidney disease, unspecified; I25.5 Ischemic cardiomyopathy; Z79.82 Long term (current) use of aspirin; Z79.899 Other long term (current) drug therapy; Z79.01 Long term (current) use of anticoagulants; Z72.89 Other problems related to lifestyle; Z87.891 Personal history of nicotine dependence; Z98.890 Other specified postprocedural states
CPT/HCPCS: 36415; 75625; 80048; 85025; 87635; 93455; 99156; C1769; C1894; J1644; J2250; J3010; Q9967; 93454

== ENCOUNTER → 2020-04-26 | Outpatient (CLI) | payer MEDICARE ==
[~2020-04-26] MED LIST changes: +EZET10TA70 PO; +RIVA2.5T PO; +VISIPAQUE 320 MG/ML, 150ML BOTTLE ONE
== END | disposition home or self-care (01) ==
LOC: CVU 09:36
PROVIDERS: ATTEND Internal Medicine Cardiovascular Disease
DX: Z01.810 Encounter for preprocedural cardiovascular examination (principal); I65.23 Occlusion and stenosis of bilateral carotid arteries; K76.0 Fatty (change of) liver, not elsewhere classified; N28.1 Cyst of kidney, acquired; I35.0 Nonrheumatic aortic (valve) stenosis; I70.0 Atherosclerosis of aorta; I77.1 Stricture of artery; M48.56XA Collapsed vertebra, not elsewhere classified, lumbar region, initial encounter for fracture; I70.8 Atherosclerosis of other arteries; M51.34 Other intervertebral disc degeneration, thoracic region
CPT/HCPCS: 71275; 74174; 93880; 94060; 94726; 94729; Q9967

== ENCOUNTER → 2020-04-30 | Outpatient (CLI) | payer MEDICARE ==
[~2020-04-30] MED LIST changes: -VISIPAQUE 320 MG/ML, 150ML BOTTLE ONE
== END | disposition home or self-care (01) ==
LOC: STAR 10:19
PROVIDERS: ATTEND Anesthesiology
DX: Z01.818 Encounter for other preprocedural examination (principal); Z11.59 Encounter for screening for other viral diseases
CPT/HCPCS: 36415; 87635

== ENCOUNTER → 2020-06-02 | Outpatient (CLI) | payer MEDICARE ==
[~2020-06-02] MED LIST changes: -ENAL2.5T PO; +ENAL2.5T8 PO
== END | disposition home or self-care (01) ==
LOC: CVU 10:22
PROVIDERS: ATTEND Internal Medicine Cardiovascular Disease
DX: I08.8 Other rheumatic multiple valve diseases (principal); I65.29 Occlusion and stenosis of unspecified carotid artery; R06.02 Shortness of breath
CPT/HCPCS: 93306; 93356

== ENCOUNTER → 2021-04-15 | Outpatient (CLI) | payer MEDICARE ==
[~2021-04-15] MED LIST changes: -OXYC5TAB3 PO; +OXYC5TAB98 PO
== END | disposition home or self-care (01) ==
LOC: CFH 12:25
PROVIDERS: ATTEND Internal Medicine Cardiovascular Disease
DX: I08.8 Other rheumatic multiple valve diseases (principal); I25.5 Ischemic cardiomyopathy
CPT/HCPCS: 93306

== ENCOUNTER 2021-05-17 12:49 | Outpatient (CLI) | payer MEDICARE ==
[~2021-05-17 12:49] MED LIST changes: +REGADENOSON 0.4 MG/5 ML SYRINGE ONE
== END 2021-05-17 23:59 | disposition home or self-care (01) ==
LOC: CFH 12:49
PROVIDERS: ATTEND Internal Medicine Cardiovascular Disease
DX: I21.19 ST elevation (STEMI) myocardial infarction involving other coronary artery of inferior wall (principal); I25.9 Chronic ischemic heart disease, unspecified; I25.10 Atherosclerotic heart disease of native coronary artery without angina pectoris; I10 Essential (primary) hypertension
CPT/HCPCS: 78452; 93017; A9502; J2785